=== PATIENT | female | born 1990 | race Caucasian/White ===

== ENCOUNTER 2016-10-19 15:16 | Emergency (ER) | payer OTHER ==
[~2016-10-19] VITALS: Ht 162.6 cm; Wt 60.6 kg
[2016-10-19 15:17] VITALS: BP 122/61
[2016-10-19 16:15] LABS: CONTROL LINE HCG INT CTR LINE PRESENT
== END 2016-10-19 16:29 | disposition home or self-care (01) ==
LOC: M ED 15:16
DX: Z71.1 Person with feared health complaint in whom no diagnosis is made (principal)

== ENCOUNTER → 2016-12-25 | Outpatient (REF) | LOC: M LAB 15:12 | PROVIDERS: ATTEND Nurse Practitioner Adult Health | DX: Z02.9 Encounter for administrative examinations, unspecified (principal) ==

== ENCOUNTER 2017-09-03 16:09 | Outpatient (CLI) | payer OTHER ==
[2017-09-03] MEDS: LR 1,000 ML IV (18:33)
[2017-09-03] MEDS: LACTATED RINGER'S 1000 ML IV (18:33)
== END 2017-09-03 18:31 | disposition home or self-care (01) ==
LOC: M LDO 16:09
DX: O99.89 Other specified diseases and conditions complicating pregnancy, childbirth and the puerperium (principal); Z3A.35 35 weeks gestation of pregnancy; O99.613 Diseases of the digestive system complicating pregnancy, third trimester; K52.9 Noninfective gastroenteritis and colitis, unspecified; R00.0 Tachycardia, unspecified; O99.413 Diseases of the circulatory system complicating pregnancy, third trimester
CPT/HCPCS: 76815

== ENCOUNTER 2017-09-27 16:59 | Inpatient (IN) | payer OTHER ==
[2017-09-27 17:59] LABS: HEMATOCRIT 32.9 % (36.0-47.0); HEMOGLOBIN 11.1 g/dl (12.0-15.5); MEAN CORPUSCULAR HEMOGLOBIN 28.8 pg (27.0-33.0); MEAN CORPUSCULAR HGB CONC 33.7 g/dl (32.0-36.5); MEAN CORPUSCULAR VOLUME 85.2 fl (80.0-96.0); PLATELET COUNT, AUTOMATED 147 10^3/uL (150-450); RED BLOOD COUNT 3.86 10^6/uL (4.00-5.40); RED CELL DISTRIBUTION WIDTH 13.4 % (11.5-14.5); WHITE BLOOD COUNT 11.2 10^3/uL (4.0-10.0)
[2017-09-27] MEDS: LACTATED RINGER'S 1000 ML IV (18:00)
[2017-09-27] MEDS ORDERED: LR 1,000 ML IV (18:00)
[2017-09-27 18:17] LABS: AMPHETAMINES URINE REFLEX NEGATIVE (NEGATIVE); BARBITURATES URINE REFLEX NEGATIVE (NEGATIVE); BENZODIAZEPINES URINE REFLEX NEGATIVE (NEGATIVE); CANNABINOIDS URINE REFLEX NEGATIVE (NEGATIVE); COCAINE METABOLITE URINE REFLE NEGATIVE (NEGATIVE); METHADONE URINE REFLEX NEGATIVE (NEGATIVE); OPIATES URINE REFLEX NEGATIVE (NEGATIVE); PHENCYCLIDINE URINE REFLEX NEGATIVE (NEGATIVE)
[2017-09-27] MEDS ORDERED: OXYTOCIN 30 UNITS IN 0.9% NaCl 500ML IV BAG (J2590) As Ordered (18:38)
[2017-09-27 19:01] LABS: CORD GAS ABE V -3.6; CORD GAS HCO3 V 21.7 MEQ/L; CORD GAS O2 SAT V 48.8 %; CORD GAS PCO2 V 40.3 mmHg; CORD GAS PH V 7.349 UNITS; CORD GAS PO2 V 21.1 mmHg; CORD GAS SBC V 20.1 MEQ/L; CORD GAS TCO2 V 22.9 MEQ/L
[2017-09-27 19:02] LABS: CORD GAS ABE A -2.8; CORD GAS HCO3 A 24.4 MEQ/L; CORD GAS O2 SAT A 18.9 %; CORD GAS PH A 7.297 UNITS; CORD GAS PO2 A 12.3 mmHg; CORD GAS TCO2 A 25.9 MEQ/L
[2017-09-27] MEDS ORDERED: OXYTOCIN DRIP 30 UNITS in APPROPRIATE DILUENT 1 EA IV (19:04)
[2017-09-27] MEDS ORDERED: METHYLERGONOVINE MALEATE 0.2 MG TAB PO (19:15)
[2017-09-27] MEDS ORDERED: DIBUCAINE 1% OINTMENT 30GM TOP (19:15)
[2017-09-27] MEDS ORDERED: ACETAMINOPHEN 500 MG TAB PO (19:15)
[2017-09-27] MEDS ORDERED: MEASLES,MUMPS,RUBELLA VACCINE INJ (MMR-II) (90707) SC (19:15)
[2017-09-27] MEDS ORDERED: DOCUSATE SODIUM 100 MG CAP PO (19:15)
[2017-09-27] MEDS ORDERED: OXYTOCIN INJ 10 UNITS/ML VIAL (J2590) IV (19:15)
[2017-09-27] MEDS ORDERED: MOM 30ML SUSPENSION UDC PO (19:15)
[2017-09-27] MEDS ORDERED: ANUSOL HC CREAM 30GM TOP (19:15)
[2017-09-27] MEDS ORDERED: RHOGAM 300 MCG (1500 IU) INJ (J2790) IM (19:15)
[2017-09-28 07:11] LABS: HEMOGLOBIN 9.2 g/dl (12.0-15.5); MEAN CORPUSCULAR HEMOGLOBIN 28.2 pg (27.0-33.0); MEAN CORPUSCULAR HGB CONC 32.9 g/dl (32.0-36.5); MEAN CORPUSCULAR VOLUME 85.9 fl (80.0-96.0); PLATELET COUNT, AUTOMATED 131 10^3/uL (150-450); RED BLOOD COUNT 3.26 10^6/uL (4.00-5.40); RED CELL DISTRIBUTION WIDTH 13.2 % (11.5-14.5); WHITE BLOOD COUNT 13.9 10^3/uL (4.0-10.0)
[2017-09-28] MEDS: PRENATAL VITAMINS CHEWABLE TABLET PO (08:01)
[2017-09-28] MEDS: IBUPROFEN 800 MG TAB PO (21:58)
[2017-09-29] MEDS: PRENATAL VITAMINS CHEWABLE TABLET PO (09:35)
== END 2017-09-29 12:05 | disposition home or self-care (01) | DRG 775 ==
LOC: M LDO 16:59 → M LDI 17:31 → M OBS 20:41
PROC: 10E0XZZ Delivery of Products of Conception, External Approach (ICD-10-PCS; principal; 2017-09-27)
DX: O80 Encounter for full-term uncomplicated delivery (principal); Z3A.39 39 weeks gestation of pregnancy; Z37.0 Single live birth

== ENCOUNTER 2017-10-01 12:41 | Emergency (ER) | payer OTHER ==
[2017-10-01 13:16] LABS: HEMATOCRIT 32.1 % (36.0-47.0); HEMOGLOBIN 10.4 g/dl (12.0-15.5); MEAN CORPUSCULAR HEMOGLOBIN 27.9 pg (27.0-33.0); MEAN CORPUSCULAR HGB CONC 32.4 g/dl (32.0-36.5); MEAN CORPUSCULAR VOLUME 86.1 fl (80.0-96.0); PLATELET COUNT, AUTOMATED 220 10^3/uL (150-450); RED BLOOD COUNT 3.73 10^6/uL (4.00-5.40); RED CELL DISTRIBUTION WIDTH 13.5 % (11.5-14.5); WHITE BLOOD COUNT 9.5 10^3/uL (4.0-10.0)
[2017-10-01 13:34] LABS: INR 0.89; PROTHROMBIN TIME 12.1 SECONDS (12.1-14.4)
[2017-10-01 13:45] LABS: ANION GAP 9 MEQ/L (8-16); BLOOD UREA NITROGEN 8 MG/DL (7-18); CALCIUM LEVEL 8.2 MG/DL (8.5-10.1); CARBON DIOXIDE LEVEL 23 MEQ/L (21-32); CHLORIDE LEVEL 109 MEQ/L (98-107); CREATININE FOR GFR 0.57 MG/DL (0.55-1.30); GLOMERULAR FILTRATION RATE > 60.0 (>60); GLUCOSE, FASTING 105 MG/DL (70-100); POTASSIUM SERUM 3.8 MEQ/L (3.5-5.1); SODIUM LEVEL 141 MEQ/L (136-145)
== END 2017-10-01 14:46 | disposition home or self-care (01) ==
LOC: M ED 12:41
DX: N93.9 Abnormal uterine and vaginal bleeding, unspecified (principal); N89.8 Other specified noninflammatory disorders of vagina; Z87.891 Personal history of nicotine dependence
CPT/HCPCS: 80048

== ENCOUNTER → 2018-03-20 | Outpatient (REF) | payer OTHER ==
[~2018-03-20] MED LIST: ANUS2.5C2 TOP; COLA100C5 PO; IBUP-1114 PO; MAPA500T2 PO; METH0.2T53 PO; MOM30SS PO; NUPE1OIN2 TOP; PRENTAB9 PO
== END ==
LOC: M SFHCLERA 13:56
PROVIDERS: ATTEND Physician Assistant
DX: J02.9 Acute pharyngitis, unspecified (principal)

== ENCOUNTER 2018-09-21 23:32 | Emergency (ER) | payer OTHER ==
[~2018-09-21] VITALS: Ht 162.6 cm; Wt 68.2 kg
[2018-09-22 00:10] LABS: BASO % 0.3 % (0.0-1.0); EOS # 0.2 10^3/uL (0.0-0.50); EOS % 2.7 % (0.0-3.0); HEMATOCRIT 38.7 % (36.0-47.0); HEMOGLOBIN 13.2 g/dl (12.0-15.5); LYMPH # 2.9 10^3/uL (1.5-6.5); LYMPH % 46.6 % (24.0-44.0); MEAN CORPUSCULAR HEMOGLOBIN 29.9 pg (27.0-33.0); MEAN CORPUSCULAR HGB CONC 34.1 g/dl (32.0-36.5); MEAN CORPUSCULAR VOLUME 87.8 fl (80.0-96.0); MONO # 0.6 10^3/uL (0.0-0.8); MONO % 8.9 % (0.0-5.0); NEUTROPHILS # 2.6 10^3/uL (1.8-7.7); NEUTROPHILS % 41.3 % (36.0-66.0); PLATELET COUNT, AUTOMATED 199 10^3/uL (150-450); RED BLOOD COUNT 4.41 10^6/uL (4.00-5.40); WHITE BLOOD COUNT 6.3 10^3/uL (4.0-10.0)
[2018-09-22 00:36] LABS: ALBUMIN 3.7 GM/DL (3.2-5.2); ALT/SGPT 26 U/L (12-78); BILIRUBIN,DIRECT < 0.1 MG/DL (0.0-0.2); BILIRUBIN,TOTAL 0.3 MG/DL (0.2-1.0); BLOOD UREA NITROGEN 11 MG/DL (7-18); CALCIUM LEVEL 8.7 MG/DL (8.5-10.1); CARBON DIOXIDE LEVEL 29 MEQ/L (21-32); CHLORIDE LEVEL 110 MEQ/L (98-107); CREATININE FOR GFR 0.74 MG/DL (0.55-1.30); GLOMERULAR FILTRATION RATE > 60.0 (>60); GLUCOSE, FASTING 90 MG/DL (70-100); LIPASE 89 U/L (73-393); POTASSIUM SERUM 3.9 MEQ/L (3.5-5.1); SODIUM LEVEL 144 MEQ/L (136-145); TOTAL PROTEIN 6.9 GM/DL (6.4-8.2)
[2018-09-22 01:38] LABS: HCG, SERUM QUALITATIVE NEGATIVE (NEGATIVE)
[2018-09-22 05:11] VITALS: BP 126/66
== END 2018-09-22 05:14 | disposition home or self-care (01) ==
LOC: M ED 23:32
DX: K52.9 Noninfective gastroenteritis and colitis, unspecified (principal)